=== PATIENT | male | born 1990 | race Hispanic/Latino ===

== ENCOUNTER 2022-11-09 14:45 | Emergency (ER) | payer SELFPAY ==
--- NOTE | ~2022-11-09 | XR_ITS ---
EXAMINATION: XR chest 2V DATE: 11/09/2022 15:35 INDICATION: Shortness of breath and left-sided chest pain TECHNIQUE: PA and lateral views of the chest were obtained. COMPARISON: None FINDINGS: The lungs are clear with no focal airspace opacities, pulmonary edema, pleural effusion or pneumothor ax. The cardiomediastinal silhouette is normal. Visualized bones and soft tissues are unremarkable. IMPRESSION: 1. No acute cardiopulmonary disease. Reviewed, dictated and finalized at location A.
--- NOTE | ~2022-11-09 | CT_ITS ---
EXAMINATION: CTA chest PE protocol DATE: 11/09/2022 16:04 INDICATION: elevated dimer, CP, recent anesthesia TECHNIQUE: Computed tomography angiography (CTA) of the chest was performed with 100 mL Omnipaque-350 intravenous contrast timed to evaluate the pulmonary arteries. Coronal maximum intensity projection 3D-reconstructions were created by the technologist. The dose-length product (DLP) was 502.63 mGy-cm. Automated exposure control and iterative reconstruction technique were employed. COMPARISON: X-ray chest, same date. FINDINGS: Lung parenchyma and airways: Clear. Pleura: Unremarkable. Thoracic inlet, axillae and chest wall: Unremarkable. Thoracic aorta: Normal. Mediastinum: Normal. Heart and pericardium: Normal. Coronary artery calcifications: Absent. Upper abdomen: No significant finding. Bones: No acute osseous finding. Pulmonary arteries: Study quality: Adequate. No pulmonary emboli detected. IMPRESSION: No CT evidence of acute pulmonary embolus. No acute intrathoracic process detected. Reviewed, dictated and finalized at location K. IMPRESSION: No CT evidence of acute pulmonary embolus. No acute intrathoracic process detec sarah.
[2022-11-09 14:47] VITALS: BP 122/68; PULSE 89; RESP 16; TEMP 36.9; O2SAT 99
--- NOTE | 2022-11-09 14:56 | PC.NURSE ---
Pt has prescribed viscus lidocaine, tramadol, ibuprofen, and amoxicillin.
--- NOTE | 2022-11-09 15:02 | ECG_ITS ---
Measurements Intervals [place] Rate: 106 P: 54 MA: 108 QRS: 40 QRSD: 81 T: 59 QT: 241 QTc: 320 Interpretive Statements SINUS TACHYCARDIA WITH SHORT MA INTERVAL NONSPECIFIC ST AND T-WAVE ABNORMALITY ABNORMAL RHYTHM ECG NO PREVIOUS ECG AVAILABLE FOR COMPARISON Electronically Signed On 11-10-2022 9:34:22 CDT by Scott Fenton M.D.
[2022-11-09 15:11] VITALS: BP 128/77; PULSE 106; PULSE 89; RESP 16; O2SAT 100
--- NOTE | 2022-11-09 15:14 | ED.CHESTPAIN ---
HPI - Chest Pain General Chief Complaint: Chest Pain Stated Complaint: CHEST PAIN Time Seen by Provider: 11/09/22 15:04 History of Present Illness HPI narrative: Patient is a 32-year-old male sent here from the doctor's office due to chest pain. Patient had an episode of chest pain 5 days ago, located over his left chest. Pain lasted for about 10 minutes before resolving without intervention. He had a similar type of pain 2 days ago, which prompted him to call and make a doctor's office appointment. Patient presented to his PCP today who recommended ED evaluation. Patient is currently pain-free. He denies any nausea, vomiting, shortness of breath, cough, congestion, leg swelling. He did have a tooth extracted 3 weeks ago. Related Data Allergies Allergy/AdvReac Type Severity Reaction Status Date / Time No Known Allergies Allergy Verified 11/09/22 15:24 Review of Systems Review of Systems: Gen.: Denies fevers or chills Eyes: Denies eye pain or visual change ENT: Denies congestion Respiratory: Denies shortness of breath or cough CV: Reports chest pain GI: Denies abdominal pain nausea, emesis or diarrhea denies burning, urgency, frequency or hematuria Musculoskeletal: Denies back pain or muscle pain Neuro: Denies numbness, tingling, weakness or focal weakness Skin: Denies rash Except as documented, all other systems reviewed and negative Exam Narrative: APPEARANCE: Well appearing, no pain in distress, well-nourished. Head: Normocephalic and atraumatic. EYES: PERRLA/EOMI, conjunctivae clear NOSE: No nasal drainage EARS: External ear normal in appearance THROAT: Oropharynx is clear. Mucous membranes are moist. NECK: Supple. No adenopathy, no masses. RESPIRATORY: Airway patent, respirations nonlabored. Clear to auscultation bilaterally, no rales, rhonchi, wheezing. CARDIOVASCULAR: Regular rate and rhythm without murmurs, rubs, or gallops. ABDOMINAL: Normoactive bowel sounds. Soft, nontender, nondistended. No rebound tenderness or guarding. MUSCULOSKELETAL: Extremities are warm and well-perfused. Moves all extremities well. No edema. NEURO: Normal speech. No focal neurologic deficits. SKIN: Skin is warm and dry. No rashes. PSYCHIATRIC: Normal affect/mood.. Course Vital Signs Vital signs: Vital Signs Temperature 98.5 F 11/09/22 14:47 Pulse Rate 89 11/09/22 14:47 Respiratory Rate 16 11/09/22 14:47 Blood Pressure 122/68 11/09/22 14:47 Pulse Oximetry 99 11/09/22 14:47 Oxygen Delivery Room Air 11/09/22 14:47 Temperature 98.5 F 11/09/22 14:47 Pulse Rate 78 11/09/22 16:23 Respiratory Rate 12 11/09/22 16:23 Blood Pressure 128/73 11/09/22 16:23 Pulse Oximetry 98 11/09/22 16:23 Oxygen Delivery Room Air 11/09/22 15:11 MDM - Chest Pain MDM Narrative Medical decision making narrative: 32-year-old male here for evaluation of chest pain over the past several days. He is nontoxic. She does have a normal vital signs, heart lungs are clear to auscultation. EKG and troponin are nonischemic. Basic labs unremarkable. Chest x-ray is clear. D-dimer very slightly positive which is obtained given recent surgery, CTA is negative for acute cardiopulmonary process including PE. Patient not actively having chest pain and declines any medicine here. Stable for outpatient management and follow-up, heart score is 2. We discussed return precautions and he voiced understanding. Lab Data 11/09/22 15:17 11/09/22 15:17 Labs: Lab Results 11/09/22 11/09/22 11/09/22 Range/Units 15:17 15:17 15:17 WBC 8.1 (4.5-10.0) K/mm3 RBC 5.27 (4.6-6.20) M/mm3 Hgb 15.4 (14.0-18.0) g/dL Hct 45.5 (42.0-52.0) % MCV 86.3 (80-100) fl MCH 29.2 (26-34) pg MCHC 33.8 (32-36) g/dl RDW 12.8 (11.5-14.5) % Plt Count 286 (150-375) k/mm3 MPV 9.3 (7.4-10.4) fl Immature Gran % (Auto) 0.4 (0-0.5) % Neut % (Auto) 65.5 (45.5-73.1) %
[2022-11-09] MEDS: ASPIRIN 81 MG CHEWABLE TABLET 324 MG PO (15:24)
[2022-11-09 15:25] LABS: Basophils Absolute Auto 0.1 K/mm3 (0.0-0.1); Basophils Percent Auto 0.9 % (0.2-1.2); Eosinophils Absolute Auto 0.1 K/mm3 (0-0.3); Eosinophils Percent Auto 1.1 % (0-4.4); Hematocrit 45.5 % (42.0-52.0); Hemoglobin 15.4 g/dL (14.0-18.0); Immature Granulocyte Absolute 0.03 K/mm3 (0.00-0.031); Immature Granulocyte Percent A 0.4 % (0-0.5); Lymphocytes Absolute Auto 2.18 K/mm3 (0.9-3.2); Mean Corpuscular HGB Conc 33.8 g/dl (32-36); Mean Corpuscular Hemoglobin 29.2 pg (26-34); Mean Corpuscular Volume 86.3 fl (80-100); Mean Platelet Volume 9.3 fl (7.4-10.4); Monocytes Absolute Auto 0.4 K/mm3 (0.1-0.6); Monocytes Percent Auto 5.1 % (2.6-8.5); Neutrophils Absolute Auto 5.3 K/mm3 (1.3-6.7); Neutrophils Percent Auto 65.5 % (45.5-73.1); Platelet Count Result 286 k/mm3 (150-375); Red Blood Count 5.27 M/mm3 (4.6-6.20); Red Cell Distribution Width 12.8 % (11.5-14.5); White Blood Count 8.1 K/mm3 (4.5-10.0)
[2022-11-09 15:35] LABS: Alanine Aminotransferase 45 U/L (6-50); Albumin Level 5.2 g/dL (3.5-5.1); Alkaline Phosphatase 69 U/L (38-126); Anion Gap 8 mmol/L (8-16); Aspartate Amino Transferase 36 U/L (17-59); Blood Urea Nitrogen 10 mg/dL (9-20); Carbon Dioxide 31 mmol/L (22-30); Chloride 101 mmol/L (98-107); Estimated CRCL calculation 110 ml/min; Estimated Glomerular Filt Rate > 60; Glucose 110 mg/dL (65-110); Lipase 58 U/L (23-300); Potassium 3.7 mmol/L (3.4-5.0); Prothrombin Time 12.9 Seconds (11.1-14.7); Sodium 140 mmol/L (137-145)
[2022-11-09 15:47] LABS: D Dimer 0.49 ug/mL (<0.48); Troponin I < 0.012 ng/mL (0.000-0.034)
[2022-11-09 16:23] VITALS: BP 128/73; PULSE 78; RESP 12; O2SAT 98
== END 2022-11-09 16:24 | disposition home or self-care (01) ==
PROVIDERS: Emergency Medicine; Emergency Provider Physician Assistant
DX: R07.89 Other chest pain (principal); R00.0 Tachycardia, unspecified
CPT/HCPCS: 36415; 71046; 71275; 80053; 83690; 84484; 85025; 85380; 85610; 85730; 93005; 99284; A9270; Q9967